=== PATIENT | female | born 1975 | race Caucasian/White ===

== ENCOUNTER 2022-01-06 15:48 | Outpatient (CLI) | payer BC | END 2022-01-06 15:49 | disposition home or self-care (01) | LOC: LABBT 15:48 | PROVIDERS: ATTEND Surgery Surgery of the Hand | DX: M25.832 Other specified joint disorders, left wrist (principal) | CPT/HCPCS: 87811 ==

== ENCOUNTER 2022-01-11 11:07 | Day surgery (SDC) | payer BC ==
[2022-01-10 12:33] VITALS: BMI 25.4
[2022-01-11] MEDS ORDERED: Bupivacaine 0.25% HCL 30 ML VIAL ONE (11:54)
[2022-01-11] MEDS ORDERED: Lidocaine 1% w/Epinephrine 1:100K 20 ML VIAL ONE (11:54)
[2022-01-11] MEDS ORDERED: EPINEPHrine 1 MG/ML AMP ONE (11:54)
[2022-01-11] MEDS ORDERED: Sodium Chloride 0.9% 100 ML ONE (12:14)
[2022-01-11] MEDS ORDERED: CEFAZOLIN 2 GM VIAL ONE (12:14)
[2022-01-11] MEDS ORDERED: fentaNYL Citrate/PF 100 MCG/2 ML SYRINGE ONE (12:20)
[2022-01-11] MEDS ORDERED: Famotidine/PF 20 mg/2ml Vial ONE (12:21)
[2022-01-11] MEDS ORDERED: PROPOFOL 200 MG/20 ML VIAL ONE (12:33)
[2022-01-11] MEDS ORDERED: Dexamethasone 20 MG/5 ML VIAL ONE (12:33)
[2022-01-11] MEDS ORDERED: Lidocaine 1% PF 5 ML VIAL ONE (12:33)
[2022-01-11] MEDS ORDERED: Ondansetron PF 4 MG/2 ML Vial ONE (12:33)
[2022-01-11] MEDS ORDERED: ePHEDrine 50 MG/ML VIAL ONE (12:33)
[2022-01-11] MEDS ORDERED: PROPOFOL 0 ML ONE (12:48)
[2022-01-11] MEDS ORDERED: Ketorolac Tromethamine 30 MG/ML VIAL ONE (13:35)
== END 2022-01-11 14:37 | disposition home or self-care (01) ==
LOC: SDC 11:07
PROVIDERS: ATTEND Surgery Surgery of the Hand
PROC: 0LB60ZZ Excision of Left Lower Arm and Wrist Tendon, Open Approach (ICD-10-PCS; principal; 2022-01-11)
DX: M67.432 Ganglion, left wrist (principal); Z79.899 Other long term (current) drug therapy; Z88.5 Allergy status to narcotic agent; Z20.822 Contact with and (suspected) exposure to COVID-19
CPT/HCPCS: 87811; 88304; 93005; 93010; J0171; J0690; J1100; J1885; J2405; J2704; J3490; S0020; S0028